=== PATIENT | female | born 1980 | race Caucasian/White ===

== ENCOUNTER → 2017-12-06 18:23 | Outpatient (CLI) | payer SELFPAY | PROVIDERS: Visit Provider Internal Medicine Hematology & Oncology | DX: Z53.9 Procedure and treatment not carried out, unspecified reason (principal) | CPT/HCPCS: 86900 ==

== ENCOUNTER → 2017-12-07 10:17 | Outpatient (CLI) | payer OTHER, SELFPAY ==
--- NOTE | 2017-12-07 10:32 | NURSING ---
PT MADE AWARE THAT [facility] HAVE NOT YET ARRIVED FROM [place]. BLOOD BANK ESTIMATES NOON IF ALL GOES ACCORDINGLY, PT DECIDED TO COME BACK AT 2PM JUST TO BE SAFE.
[2017-12-07 14:08] VITALS: BP 107/68; PULSE 68; RESP 18; TEMP 36.9; O2SAT 99; BMI 20.7
[2017-12-07 14:54] VITALS: BP 114/62; PULSE 62; RESP 18; TEMP 36.4; O2SAT 99
[2017-12-07 15:49] VITALS: BP 110/56; PULSE 62; RESP 18; TEMP 37.2; O2SAT 99
== END ==
PROVIDERS: Visit Provider Internal Medicine Hematology & Oncology
DX: C92.00 Acute myeloblastic leukemia, not having achieved remission (principal)
CPT/HCPCS: 36430; 86644; 86900; 86965; J7040; P9037; A4216

== ENCOUNTER 2017-12-08 20:30 | Emergency (ER) | payer OTHER, SELFPAY ==
[2017-12-08 20:32] VITALS: BP 135/38; PULSE 73; RESP 20; TEMP 38.1; O2SAT 98; BMI 20.3
--- NOTE | 2017-12-08 21:01 | EKG12_ITS ---
Test Reason : SOB Blood Pressure : / mmHG Vent. Rate : 066 BPM Atrial Rate : 066 BPM P-R Int : 114 ms QRS Dur : 092 ms QT Int : 454 ms P-R-T Axes : 042 036 029 degrees QTc Int : 475 ms Normal sinus rhythm Nonspecific T wave abnormality Prolonged QT Abnormal ECG Confirmed by DUSTIN BRUSH ([id number]), newspaper photo editor JACKI SHELDON ([id number]) on 12/13/2017 1:53:11 PM Referred By: CAILIN Confirmed By:DUSTIN BRUSH
--- NOTE | 2017-12-08 21:01 | RAD_ITS ---
STUDY: X-RAY CHEST REASON FOR EXAM: Female, 37 years old. Fever TECHNIQUE: Single AP portable view of the chest. COMPARISON: None. FINDINGS: There is a right-sided central venous line with tip in the region of the distal SVC. The lungs are clear and expanded. There is a small right-sided pleural effusion. Normal size heart. Normal mediastinum and cecilio. Normal visualized pulmonary arteries. Normal visualized aortic arch and descending thoracic aorta. Normal visualized thoracic spine. Normal visualized ribs, clavicles, and shoulders. There is no demonstrated abnormality of the visualized soft tissue structures of the upper abdomen. RAD/Chest 1 View (Portable) IMPRESSION: Small right-sided pleural effusion. Right-sided central venous line with tip in the region of the distal SVC. There is no evidence of gianna infiltrate or atelectasis. Electronically Signed: Shivam Carias MD at 21:47 EDT , Service support ,
[2017-12-08 21:22] VITALS: RESP 17; O2SAT 97
[2017-12-08 21:28] VITALS: TEMP 37.6
[2017-12-08 21:42] LABS: International Normalized Ratio 1.1
[2017-12-08 21:43] LABS: Partial Thromboplast Time 33.6 Seconds (24.1-36.2)
[2017-12-08 21:48] LABS: Hemoglobin 8.6 g/dl (12.0-15.0); Mean Corp Hgb Conc 30.7 g/gl (32-36); Mean Corpuscular Hgb 26.5 pg (27.0-32.0); Mean Corpuscular Volume 86.4 fL (81-99); POSITIVE COUNT YES; POSITIVE DIFFERENTIAL YES; POSITIVE MORPHOLOGY YES; Red Blood Count 3.24 M/mm3 (4.2-5.4); White Blood Count 1.9 K/mm3 (4.4-11.0)
[2017-12-08 21:49] LABS: Differential Indicated MANUAL DIFF; Platelet Count 15 K/mm3 (150-450)
[2017-12-08 22:01] LABS: ALB/GLOB Ratio 0.9 RATIO (0.9-2.4); AST(SGOT) 38 U/L (15-37); Alanine Aminotransfer ALT/SGPT 45 U/L (13-56); Alkaline Phosphatase 123 U/L (45-117); Anion Gap 8 (5-15); BUN 10 mg/dL (7-18); BUN/Creat Ratio 10.8 RATIO (10-20); Calcium,Total 7.9 mg/dL (8.5-10.1); Chloride 108 mmol/L (98-107); Creatinine, Serum 0.92 mg/dL (0.55-1.02); EST Glomerular Filtration Rate 73 mL/min (>60); Est Glom Filt Rate - Afr Amer 89 mL/min (>60); Estimated Creatinine Clearance 73.95 ml/min; Globulin 3.4 g/dL (2.2-4.2); Glucose 96 mg/dL (74-106); Lactic Acid 0.8 mmol/L (0.4-2.0); Potassium 3.2 mmol/L (3.5-5.1); Protein, Total 6.4 g/dL (6.4-8.2); Sodium Level 141 mmol/L (136-145)
[2017-12-08 22:13] LABS: Bacteria 0 SEEN /hpf (None Seen); Mucous, Urine 0 SEEN /hpf (<or=2+); White Blood Cells 0 SEEN /hpf (0-5)
[2017-12-08 22:22] LABS: Basophil 1 % (0-1); Blast 1 % (0-0); Eosinophil 6 % (0-5); Metamyelocyte 2 % (0-1); Neutrophil-Band 5 % (0-5); Neutrophil-Segmented 34 % (47-70); Total Cells Counted 100 (MANUAL DIFF)
[2017-12-08 22:24] LABS: Color, Urine Yellow (Yellow); Glucose, Dipstick Normal (Normal); Ketone-Dipstick Negative (Negative); Leukocyte Esterase-Dipstick Negative /ul (Negative); Nitrite-Dipstick Negative (Negative); Occult Blood-Urine 250 /ul (Negative); Protein-Dipstick Negative (Negative); Urine Bilirubin Dipstick Negative (Negative); Urine Clarity Sl. Cloudy (Clear); Urine Urobilinogen Normal (Normal)
[2017-12-08 22:25] LABS: Platelet Estimate MOD DEC (ADEQ); Red Cell Morphology NORM C+C NORMAL (NORM C&C)
[2017-12-08 22:27] LABS: Lymphocyte 36 % (19-41); Monocyte 15 % (0-10)
[2017-12-08 22:29] LABS: Absolute Lymphocyte Count 0.68 X10^3/ul (0.83-4.51); Absolute Neutrophil Count 0.7 X10^3/uL (2.0-7.7)
[2017-12-08 22:41] LABS: Red Blood Cells-Urine 25-50 SEEN /hpf (0-5); Squamous Epithelial Cells - UA 0-5 SEEN /hpf (5-10); Transitional Epithelial - Ur 0-5 SEEN /hpf (0-5)
--- NOTE | 2017-12-08 23:41 | ED.VISSUMM ---
- ER Visit Summary Date of Service: 12/08/17 Chief Complaint: Fever History of Present Illness: The patient is a 37 F presenting for evaluation secondary to fever. Patient has an underlying history of leukemia and is undergoing chemotherapy. Last chemo treatment was last week. Patient is actually due for a platelet transfusion today, but stated that she developed a fever of 100.8 at home. She denies any cough nausea vomiting diarrhea skin rashes sore throat chest pain or any other infectious signs or symptoms. Review of systems otherwise negative. Physical Examination: Vital signs are within normal limits except for mildly elevated temperature of 100.6, patient is afebrile. General: Patient is well-nourished well-developed and in no acute distress. Head: Normocephalic, atraumatic Eyes: Pupils equal round and reactive bilaterally, extra occular motion intact bialterally, conjunctiva are noted to be pale bilaterally ENT: Moist mucous membranes Neck: Supple, no lymphadenopathy, no JVD, no meningismus CVS: Heart regular rate and rhythm, no murmurs, rubs or gallops, radial pulses 2+ bilaterally Resp: Respirations nondistressed, lung sounds clear bilaterally, no rhonchi is rales or wheezes Abdomen: Soft, nontender, nondistended, no palpable masses, normal bowel sounds Back: Nontender Extremities: Nontender, atraumatic, active full range of motion, no peripheral edema Skin: warm, no rashes, no petechia Neuro: Alert and oriented x 4, CN 2-12 intact, no lateralizing neurological defecits Psyc: Normal affect Test Results: CBC shows pancytopenia with a white blood cell count 1.9, hemoglobin of 8.6, platelet count of 15, absolute neutrophil count of 0.7. Chemistry shows mild hypokalemia 3.2 and hypocalcemia 7.9, urinalysis shows no infection but does show some blood. Chest x-ray shows right-sided effusion which the patient states is old and loculated. Emergency Department Course and Treatment: Patient presented secondary to a fever in the setting of possibly being neutropenic. Patient does have low neutrophil count, but cut off for severe neutropenia is 0.5, and the patient is slightly above this. Cultures of both blood and urine were obtained. Patient's fever improved with treatment with Tylenol in the emergency department. At this point I believe the patient can safely be discharged for her platelet transfusion. I did attempt to page oncology, Dr. Mccoy but was unable to get in contact with him. Patient was instructed to follow-up with oncology and to return for worsening symptoms. Disposition: Discharge Impression: 1. Fever 2. Pancytopenia with severe thrombocytopenia 3. Low neutrophil count This note was generated with [employer] dictation software. It may contain incorrect words, spelling, and punctuation that were not noted in review of the chart prior to signing ED Disposition - Plan for ED Patient: Disposition: Home or Assisted Living Chief Complaint: Fever Diagnosis: Fever Instructions: ED Fever Unconf Cause Additional Instructions: Followup with oncology
[2017-12-08 23:57] VITALS: BP 139/112; RESP 18; O2SAT 96
[2017-12-09 14:55] LABS: Pathologist Review Reviewed
== END 2017-12-08 23:59 | disposition home or self-care (01) ==
PROVIDERS: Emergency Provider Emergency Medicine
DX: R50.9 Fever, unspecified (principal); D61.818 Other pancytopenia; D69.6 Thrombocytopenia, unspecified; C95.90 Leukemia, unspecified not having achieved remission; E87.6 Hypokalemia; E83.51 Hypocalcemia
CPT/HCPCS: 36592; 71045; 80053; 81001; 83605; 85025; 85610; 85730; 86900; 86901; 87040; 87077; 87086; 87088; 93005; 99281; A4216

== ENCOUNTER 2017-12-08 23:01 | Outpatient (CLI) | payer OTHER, SELFPAY ==
[2017-12-09 00:31] VITALS: BP 140/77; PULSE 68; RESP 18; TEMP 37.3; O2SAT 97
[2017-12-09 00:55] VITALS: BP 144/70; PULSE 58; RESP 18; TEMP 37.3; O2SAT 95
[2017-12-09] MEDS: 0.9% NaCl Peripheral Flush Adult/Peds IV ×3 (01:00→02:00)
[2017-12-09 01:32] VITALS: BP 137/71; PULSE 63; RESP 18; TEMP 37.3; O2SAT 97
[2017-12-09 01:35] VITALS: BP 137/71; PULSE 63; RESP 18; TEMP 37.3; O2SAT 97
[2017-12-09 01:50] VITALS: BP 128/60; PULSE 64; RESP 18; TEMP 37.4; O2SAT 96
[2017-12-09 01:51] VITALS: BP 123/71; PULSE 60; RESP 18; TEMP 37.3; O2SAT 99
== END 2017-12-09 02:25 | disposition home or self-care (01) ==
LOC: MEDOUTP 23:01 → PCU 23:58
PROVIDERS: Visit Provider Internal Medicine Hematology & Oncology
DX: C92.00 Acute myeloblastic leukemia, not having achieved remission (principal)
CPT/HCPCS: 36430; 86644; 86900; 86901; 86965; P9037; A4216